=== PATIENT | male | born 1955 | race Caucasian/White ===

== ENCOUNTER 2018-04-07 05:34 | Day surgery (SDC) | payer MEDICARE, OTHER ==
[2018-04-07] MEDS ORDERED: fentaNYL 100 MCG/2 ML SDV IV ONE ×3 (05:35→06:35)
[2018-04-07] MEDS ORDERED: Midazolam 1 MG/ML 2 ML SDV IV ONE ×5 (05:35→06:41)
[2018-04-07] MEDS ORDERED: Dextrose 5%-0.45% NaCl 1,000 ML IV SCH (06:15)
[2018-04-07] MEDS ORDERED: Midazolam 1 MG/ML 2 ML SDV ONE (06:19)
[2018-04-07] MEDS ORDERED: fentaNYL 100 MCG/2 ML SDV ONE (06:19)
--- NOTE | 2018-04-07 07:21 | OR ---
DATE: 04/07/2018 PROCEDURES PERFORMED: Total colonoscopy and cold snare polypectomy. INSTRUMENT USED: PCF-H180 AL Olympus video colonoscope. PREMEDICATIONS: Fentanyl 100 mcg intravenous, Versed 2 mg intravenous. Nasal O2 cannula. The procedure was done under pulse oximetry, BP recording, and monitoring tech. INDICATION: The patient with previous colonic tubular adenoma, surveillance colonoscopic examination is done for detection of any polypoid lesions and removal, endoscopic hemostasis therapy if needed. Initial rectal exam was unremarkable. Rigid anoscopy was normal. DESCRIPTION OF PROCEDURE: The scope was passed with ease. Few scattered diverticula were noted in the distal left colon. The scope was passed with ease up to the ileocecal area. Photographs were taken of the normal-appearing cecum identified by double-bulged ileocecal folds. No bleeding was noted from any of the visualized areas at the commencement of the examination. Bowel preparation was adequate, Moffat scale 3. No stricture. No vascular ectasia. No large or isolated ulcerations seen. No evidence of diffuse inflammatory bowel disease in the form of friability, contact bleeding, or ulcerations. In the proximal ascending colon, 5-mm sized, benign-appearing polyp was noted. Photograph was taken. Cold snare polypectomy was done. The tissue was retrieved and sent for histopathology. Probing the proximal sides of folds and flexures, using adequate distention and clearing up the stool material, withdrawal of the scope was made, [id number] time over 6 minutes. No bleeding was noted from any of the visualized areas at the completion of examination. IMPRESSION: 1. Diverticulosis. 2. Ascending colon polyp. The patient tolerated the procedure well. [facility] /[id number]
--- NOTE | 2018-04-11 07:03 | LETTER ---
04/10/2018 Anjelica Torres NP [facility] [address] [place] [address] RE: AARONLEONEL MCCARTY Hilary : 1955 Dear Mr. Torres: Mr. Leonel Salinas had colonoscopic examination done. He tolerated the procedure well. I herewith send a copy of the endoscopy note and photographs for your review. Thank you, Sincerely, [facility] /[id number]
--- NOTE | 2018-04-11 07:06 | OR ---
DATE: 04/07/2018 PROCEDURE: Total colonoscopy. INSTRUMENT USED: CF-H180 AL Olympus video colonoscope. PREMEDICATIONS: Fentanyl 100 mcg intravenous, Versed 2 mg intravenous. The procedure was done under pulse oximetry, BP recording, and registered nurse cardiac telemetry. INDICATION: Initial rectal exam was unremarkable. Rigid anoscopy was normal. The colonoscope was passed with ease. Visualization of the distal rectal area by retroflexion showed no polypoid lesions. The scope was passed with ease up to the ileocecal area, photographs were taken of the normal appearing cecum identified by landmarks of appendiceal orifice and double bulged ileocecal folds. No bleeding was noted from any of the visualized areas at the commencement of the examination. No stricture. No vascular ectasia. No large isolated ulcerations seen. No evidence of diffuse inflammatory bowel disease in the form of friability, contact bleeding, or ulcerations. No polyp or tumor mass identified. Probing the proximal sides of folds and flexures, using adequate distention and clearing of the stool material, withdrawal of the scope was made, cecum to rectum time over six minutes. No bleeding was noted from any of the visualized areas at the completion of examination. [facility] /[id number]
== END 2018-04-07 08:57 | disposition home or self-care (01) ==
LOC: DL.ENDO 05:34
PROVIDERS: ATTEND Internal Medicine Gastroenterology
DX: Z12.11 Encounter for screening for malignant neoplasm of colon (principal); D12.2 Benign neoplasm of ascending colon; K57.30 Diverticulosis of large intestine without perforation or abscess without bleeding; I10 Essential (primary) hypertension; E66.09 Other obesity due to excess calories; E03.9 Hypothyroidism, unspecified; E78.00 Pure hypercholesterolemia, unspecified; E55.9 Vitamin D deficiency, unspecified; Z86.010 Personal history of colon polyps
CPT/HCPCS: 45385; J2250; J3010; J7042

== ENCOUNTER 2023-04-07 05:12 | Day surgery (SDC) | payer MEDICARE, OTHER ==
[2023-04-07] MEDS ORDERED: Dextrose 5%-0.45% NaCl 1,000 ML IV SCH (05:30)
[2023-04-07] MEDS ORDERED: Midazolam 1 MG/ML 2 ML SDV IV ONE ×3 (06:13→06:23)
[2023-04-07] MEDS ORDERED: fentaNYL 100 MCG/2 ML SDV IV ONE ×3 (06:13→06:22)
[2023-04-07] MEDS ORDERED: Midazolam 1 MG/ML 2 ML SDV ONE (06:13)
[2023-04-07] MEDS ORDERED: fentaNYL 100 MCG/2 ML SDV ONE (06:13)
== END 2023-04-07 08:30 | disposition home or self-care (01) ==
LOC: DL.ENDO 05:12
PROVIDERS: ATTEND Internal Medicine Gastroenterology
DX: Z12.11 Encounter for screening for malignant neoplasm of colon (principal); Z86.010 Personal history of colon polyps; E78.00 Pure hypercholesterolemia, unspecified; I10 Essential (primary) hypertension
CPT/HCPCS: G0121; J2250; J3010; J7042